=== PATIENT | male | born 1990 | race Hispanic/Latino ===

== ENCOUNTER 2023-07-31 20:04 | Emergency (ER) | payer BC, SELFPAY ==
--- NOTE | 2023-07-31 20:07 | ED.EAR ---
HPI - Ear Problem General Chief complaint: Ear Stated complaint: right ear pain Time Seen by Provider: 07/31/23 20:07 Source: patient Mode of arrival: ambulatory Limitations: no limitations History of Present Illness HPI Narrative: 33-year-old male with no significant past medical history presents to the ER with a 2-3 day history of -- nasal congestion with mucopurulent discharge -- while yawning he developed severe right-sided ear pain which has persisted all day. No ear discharge. No fever or chills. No sore throat No cough or sputum production MD Complaint: ear pain Location: right ear Duration: constant Severity: mild Relieving factors: nothing Exacerbating factors: nothing Discharge from ear: Reports no Treatment prior to arrival: none Related Data Allergies Allergy/AdvReac Type Severity Reaction Status Date / Time No Known Allergies Allergy Verified 07/31/23 20:06 Review of Systems Review of Systems: All systems reviewed & are unremarkable except as noted in HPI and below Constitutional: Constitutional: Reports as per HPI and Reports no additional constitutional complaints Eyes: Eyes: Reports as per HPI and Reports no additional eye complaints ENT: Reports system reviewed and no additional complaints, except as documented and Reports as per HPI Comments: right ear pain nasal congestion Cardiovascular: Cardiovascular: Reports as per HPI and Reports no additional cardiovascular complaints Respiratory: Respiratory: Reports as per HPI and Reports no additional respiratory complaints Gastrointestinal: Gastrointestinal: Reports as per HPI and Reports no additional gastrointestinal complaints Genitourinary: Genitourinary: Reports no additional male genitourinary complaints Musculoskeletal: Musculoskeletal: Reports no additional musculoskeletal complaints and Reports as per HPI Integumentary/Breasts: Skin/Breast: Reports system reviewed and no additional complaints, except as docu and Reports as per HPI Neurologic: Reports system reviewed and no additional complaints, except as documented and Reports as per HPI Psychiatric: Psychiatric: Reports no additional psychiatric complaints and Reports as per HPI Endocrine: Endocrine: Reports no additional endocrine complaints and Reports as per HPI Hematologic/Lymphatic: Hematologic/Lymphatic: Reports no additional hematologic/lymphatic complaints and Reports as per HPI Allergic/Immunologic: Allergic/Immunologic: Reports no additional allergic/immunologic complaints Exam Const: General: no acute distress Nutritional Appearance: well nourished Orientation/consciousness: patient oriented x3 Limitations: no limitations HENMT: Head: normal to inspection Ears: external ears normal and TM's normal bilaterally ( unable to visualize bilateral tympanic membrane 2 to a large amount of wax) Face/Nose/Sinus: Normal external nose present Face and sinus: normal facial exam Mouth: Yes Normal oral and palatal mucosa present Throat: posterior oropharynx normal Eyes: Conjunctivae: conjunctivae normal Pupils: Equal, round and reactive pupils present EOM: EOMs intact bilaterally Direct Ophthalmoscopy: no photophobia Neck: Neck: normal visual inspection and no lymphadenopathy Chest: Chest palpation & inspection: normal inspection of the chest Resp: Effort & Inspection: normal respiratory effort Auscultation: clear to auscultation bilaterally Cardio: Rate: regular rate Rhythm: regular rhythm GI: Inspection: distended Auscultation: normal bowel sounds : General: Yes no CVA tenderness Back/Spine/Pelvis: Back: no CVA tenderness Skin: General skin exam: normal color Rashes: no rashes Wounds: no wounds Neuro: General: patient oriented x3, moves all extremities, no meningeal signs, no focal motor deficits and CN's II-XI intact bilaterally Cranial nerves: Yes Nystagmus not present Speech: normal speech Gait exam (Neuro): Normal gait present Extrem: Ge
[2023-07-31 20:08] VITALS: BP 129/85; PULSE 79; RESP 16; TEMP 36.6; O2SAT 100
[2023-07-31] MEDS: HYDROcodone/acetaminophen (*CRX) 5-325 MG TABLET 1 TAB PO (20:34)
[2023-07-31] MEDS: NEOMYCIN/POLYMYXIN/HYDROCORT OT SUSP 10 ML BTL (*BKC) 3 DROP RIGHT EAR (20:35)
== END 2023-07-31 21:21 | disposition home or self-care (01) ==
LOC: CHSED 20:33
PROVIDERS: Emergency Provider Internal Medicine Critical Care Medicine
DX: H69.91 Unspecified Eustachian tube disorder, right ear (principal); J32.9 Chronic sinusitis, unspecified
CPT/HCPCS: 99283; A9270

== ENCOUNTER 2023-11-01 08:27 | Emergency (ER) | payer BC, SELFPAY ==
[2023-11-01 08:30] VITALS: BP 123/76; PULSE 102; RESP 19; O2SAT 97
[2023-11-01 08:38] VITALS: O2SAT 97
--- NOTE | 2023-11-01 08:39 | ED.URI ---
HPI - URI/Sore Throat General Chief Complaint: Upper Respiratory Infection Stated Complaint: fever/cough Time Seen by Provider: 11/01/23 08:29 History of Present Illness HPI Narrative: Patient is a healthy 33 year old male with no PMH here with flu like symptoms. Patient note symptoms began about 5 days ago, initially with body aches and a fever. Fever has progressed throughout the week and also included nasal congestion, post nasal drip, diarrhea and a mild, non productive cough. No nausea, vomiting, chest pain, shortness of breath, urinary symptoms, abdominal pain. He has taken ibuprofen and nyquil/dayquil at home with some improvement of symptoms. Last dose of motrin was around 0800 today. He has had multiple sick contacts with nephews who have had fevers recently. Related Data Home Medications Medication Instructions Recorded Confirmed No Home Medications 11/01/23 11/01/23 Allergies Allergy/AdvReac Type Severity Reaction Status Date / Time No Known Allergies Allergy Verified 11/01/23 08:39 Review of Systems Review of Systems: All systems reviewed & are unremarkable except as noted in HPI and below Exam Narrative: GENERAL: Well-appearing, well-nourished, and in no acute distress. HEAD: Normocephalic, atraumatic. EYES: PERRLA and EOMI. ENT: Nares clear. Mucous membranes moist. NECK: Supple. CHEST: Clear to auscultation. No respiratory distress. HEART: Regular rate and rhythm. Normal peripheral pulses. ABDOMEN: Soft, nontender, nondistended. EXTREMITIES: Normal range of motion. No edema. SKIN: Warm, dry, no rash. NEURO: No focal deficits. Alert and oriented x3. PSYCH: Normal mood and affect. Course Course Emergency Course: Chart review performed. Patient here with flu like symptoms x 5 days. Triage vitals show mild tachycardia, otherwise unremarkable. Patient seen and evaluated, non toxic appearing. Differentials include viral illness, COVID/Influenza/RSV sent. Will do dose of tylenol here. Minimal cough, non productive, do not feel that xray or lab work are indicated at this time. Low suspicion for pneumonia. Patient agreeable to workup and plan. Viral swab reveals patient positive for Influenza B. He is already 5 days into symptoms, no indication for tamiflu at this time. Patient reevaluated, feeling a bit better after tylenol. Advised to continue taking tylenol and ibuprofen for symptoms and follow with PCP. Should return if new or worsening symptoms develop. The results of pertinent diagnostic studies and exam findings were discussed. The patient?s provisional diagnosis and plan of care were discussed with the patient and present family. The patient and/or present family expressed understanding of the diagnosis and plan. The nurse was instructed to provide written instructions and appropriate follow-up information. The patient understands their need and responsibility to obtain additional follow-up as instructed. The risks of medications administered and prescribed were discussed with the patient and family present. Vital Signs Vital signs: Vital Signs Pulse Rate 102 H 11/01/23 08:30 Respiratory Rate 19 11/01/23 08:30 Blood Pressure 123/76 11/01/23 08:30 Pulse Oximetry 97 11/01/23 08:30 Oxygen Delivery Room Air 11/01/23 08:30 Pulse Rate 102 H 11/01/23 08:30 Respiratory Rate 19 11/01/23 08:30 Blood Pressure 123/76 11/01/23 08:30 Pulse Oximetry 97 11/01/23 08:38 Oxygen Delivery Room Air 11/01/23 08:38 MDM - URI/Sore Throat Lab Data Labs: Lab Results 11/01/23 Range/Units 08:33 Influenza A (RT-PCR) Pending Influenza B (RT-PCR) Pending RSV (RT-PCR) Pending SARS-CoV-2 RNA (RT-PCR) Pending Discharge Plan Discharge Clinical Impression: Acute viral syndrome, Influenza B Patient Disposition: Home, Self-Care Condition: Stable Instructions: Antibiotic Form, Influenza (ED), Viral Syndrome (ED) Additional Instructions: Cont
[2023-11-01] MEDS: ACETAMINOPHEN 500 MG TABLET 1000 MG PO (08:45)
[2023-11-01 09:13] LABS: SARS-CoV-2 RNA PCR Negative (Negative)
[2023-11-01 09:20] LABS: Influenza A QL RT-PCR Negative (Negative); Influenza B QL RT-PCR Positive (Negative); RSV RNA, RT-PCR Negative (Negative)
[2023-11-01 09:24] VITALS: BP 126/84; PULSE 74; RESP 19; TEMP 38.2; O2SAT 99
== END 2023-11-01 09:35 | disposition home or self-care (01) ==
PROVIDERS: Emergency Provider Student in an Organized Health Care Education/Training Program
DX: J10.1 Influenza due to other identified influenza virus with other respiratory manifestations (principal); Z20.822 Contact with and (suspected) exposure to COVID-19
CPT/HCPCS: 87637; 99283

== ENCOUNTER 2023-11-03 08:28 | Emergency (ER) | payer BC, SELFPAY ==
--- NOTE | ~2023-11-03 | XR_ITS ---
EXAMINATION: XR chest 1V portable DATE: 11/03/2023 08:45 INDICATION: Cough and chest pain. TECHNIQUE: frontal view of the chest was obtained. COMPARISON: Chest radiograph dated FINDINGS: The lungs are clear with no focal airspace opacities, pulmonary edema, pleural effusion or pneumothor ax. The cardiomediastinal silhouette is normal. Visualized bones and soft tissues are unremarkable. IMPRESSION: 1. No acute cardiopulmonary disease. Reviewed, dictated and finalized at location A.
[2023-11-03 08:28] VITALS: BP 141/85; PULSE 97; RESP 17; TEMP 37.4; O2SAT 98
--- NOTE | 2023-11-03 08:37 | ED.GENADULT ---
HPI - General Adult General Chief complaint: Upper Respiratory Infection Stated complaint: fever Time Seen by Provider: 11/03/23 08:36 Source: patient Mode of arrival: ambulatory History of Present Illness HPI narrative: 33-year-old white male diagnosed with flu B 2 days ago in the emergency room here. Now he has had 5 days of muscle aches fever cough sore throat runny nose he comes in now because he complains of difficulty breathing. Admits to having wheezing or problems breathing at times. Denies any rash or itching bleeding or bruising dizziness or lightheadedness lumps or bumps or swelling anywhere or any other complaints. Related Data Allergies Allergy/AdvReac Type Severity Reaction Status Date / Time No Known Allergies Allergy Verified 11/01/23 08:39 Review of Systems Review of Systems: All systems reviewed & are unremarkable except as noted in HPI and below PMFSH Comments No smoking alcohol or illicit drug use. Exam Narrative: White male patient with no apparent distress.? Head normocephalic, atraumatic.? Eyes conjunctiva pink sclera nonicteric.? Extraocular movements are intact.? Ears externally normal.? Oropharynx superficial 1mm ulcerations posterior pharynx with moist mucous membranes without exudates.? Neck is supple nontender no lymphadenopathy.? Back is nontender.? Lungs are clear.? Heart is regular rate and rhythm without murmurs gallops or rubs.? Chest wall nontender.? Back is nontender. Abdomen is soft and nontender no hepatosplenomegaly or masses no CVA tenderness no abdominal bruits.? Extremities no cyanosis clubbing or edema.? Skin is warm and dry without rashes or lesions.? Neurological patient is alert and oriented x4.? Motor and sensory grossly intact.? Gait is normal. Course Vital Signs Vital signs: Vital Signs Temperature 37.4 C 11/03/23 08:28 Pulse Rate 97 11/03/23 08:28 Respiratory Rate 17 11/03/23 08:28 Blood Pressure 141/85 H 11/03/23 08:28 Pulse Oximetry 98 11/03/23 08:28 Oxygen Delivery Room Air 11/03/23 08:28 Temperature 37.3 C 11/03/23 09:39 Pulse Rate 85 11/03/23 09:39 Respiratory Rate 17 11/03/23 09:39 Blood Pressure 108/66 11/03/23 09:39 Pulse Oximetry 98 11/03/23 09:39 Oxygen Delivery Room Air 11/03/23 09:39 Medical Decision Making MDM Narrative Medical decision making narrative: Patient was placed in Room # One with his mother strep screen was negative Independent Historian: mother Differential Dx includes but not limited to: strep flu asthmatic bronchitis Medications were Reviewed: home meds reviewed Medications, treatment, ED course: albuterol nebulizer, with this he felt better he has increased air into his lungs and did not have any burning like he did before. Independently Interpreted by me: chest x-ray showed no active disease as independently interpreted by me. Radiologist read it as no active disease External Source Review: Shared decision Making: evaluation and plan were discussed all questions were asked and answered and patient agreed with the plan. albuterol 2 puffs 4 times a day for 10 days Tylenol ibuprofen Cepacol Chloraseptic sprays salt water gargles return if he gets worse or develops any new symptoms. Social Situation Impacting Patients Care: Current flu B infection Bronchospasm DISCHARGE DIAGNOSIS: influenza B bronchospasm DISPOSITION: discharge home CONDITION AT DISCHARGE: stable Vital Signs Vital Signs: Vital Signs Temperature 37.4 C 11/03/23 08:28 Pulse Rate 97 11/03/23 08:28 Respiratory Rate 17 11/03/23 08:28 Blood Pressure 141/85 H 11/03/23 08:28 Pulse Oximetry 98 11/03/23 08:28 Oxygen Delivery Room Air 11/03/23 08:28 Temperature 37.3 C 11/03/23 09:39 Pulse Rate 85 11/03/23 09:39 Respiratory Rate 17 11/03/23 09:39 Blood Pressure 108/66 11/03/23 09:39 Pulse Oximetry 98 11/03/23 09:39 Oxygen Delivery Room Air 11/03/23 09:39 Lab Data Lab
[2023-11-03 08:45] VITALS: PULSE 97; RESP 17; O2SAT 98
[2023-11-03] MEDS: ALBUTEROL SULFATE NEB 2.5 MG/3 ML INH INHALATION (08:48)
[2023-11-03 08:57] VITALS: PULSE 105; RESP 17; O2SAT 100
[2023-11-03 09:06] LABS: Strep Group A RT-PCR NOT DETECTED (Negative)
[2023-11-03 09:39] VITALS: BP 108/66; PULSE 85; RESP 17; TEMP 37.3; O2SAT 98
== END 2023-11-03 09:39 | disposition home or self-care (01) ==
PROVIDERS: Emergency Provider Emergency Medicine
DX: J10.1 Influenza due to other identified influenza virus with other respiratory manifestations (principal); J98.01 Acute bronchospasm
CPT/HCPCS: 71045; 87651; 99283